=== PATIENT | male | born 1965 | race American Indian/Alaskan Native ===

== ENCOUNTER 2019-01-23 16:11 | Emergency (ER) | payer MEDICAID ==
[2019-01-23 16:27] VITALS: TEMP 98.1
--- NOTE | 2019-01-23 16:51 | C.PDOC ---
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 He was sitting in the car talking to his friend when his wrist started tingling. Over the next 15 minutes, the pain w orsened and stayed constant. About every 10 seconds a new wave of pain inside his wrist bursts, radiating about snf up his forearm and through his fingers. He feels numbness and tingling throughout his hand. He denies fever, chills, sick contacts, recent travel, chest pain, shortness of breath, abdominal pain, nausea, vomiting, constipation, diarrhea, dizziness, headache, trauma. <Candice Chan - Last Filed: 01/23/19 20:48> History Per: Patient Onset/Duration Of Symptoms: Mins Current Symptoms Are (Timing): Worse Quality: Sharp, Burning, Aching, Tightness, "Pain" Pain Scale Rating Of: 10 Additional History Per: Family <Candice Chan - Last Filed: 01/23/19 20:48> <Clovis Lucas DO - Last Filed: 01/24/19 00:16> Chief Complaint (Nursing): Upper Extremity Problem/Injury Past Medical History Reviewed: Historical Data, Nursing Documentation, Vital Signs Vital Signs: Last Vital Signs Temp 98.1 F 01/23/19 16:17 Pulse 64 01/23/19 16:17 Resp 20 01/23/19 16:17 BP 141/97 H 01/23/19 16:17 Pulse Ox 100 01/23/19 16:17 Primary Care Provider: Non [facility] Provider, Surgical History: Pacemaker Family History: States: Unknown Family Hx - Social History Hx Tobacco Use: No Hx Alcohol Use: No Hx Substance Use: Yes (marijuana) - Immunization History Hx Tetanus Toxoid Vaccination: Yes Hx Influenza Vaccination: Yes Hx Pneumococcal Vaccination: Yes <Candice Chan - Last Filed: 01/23/19 20:48> Vital Signs: Last Vital Signs Temp 98.1 F 01/23/19 16:17 Pulse 79 01/23/19 18:14 Resp 16 01/23/19 18:14 BP 123/81 01/23/19 18:14 Pulse Ox 100 01/23/19 19:00 <Clovis Lucas DO - Last Filed: 01/24/19 00:16> Review Of Systems Constitutional: Negative for: Fever, Chills, Weakness, Malaise Eyes: Negative for: Pain, Vision Change ENT: Negative for: Ear Pain, Ear Discharge Cardiovascular: Negative for: Chest Pain, Palpitations, Edema Respiratory: Negative for: Cough, Shortness of Breath, Wheezing Gastrointestinal: Negative for: Nausea, Vomiting, Abdominal Pain, Diarrhea, Constipation Genitourinary: Negative for: Dysuria, Frequency, Incontinence Musculoskeletal: Positive for: Arm Pain, Hand Pain, Other (L wrist pain) Neurological: Positive for: Numbness. Negative for: Weakness, Seizures, Altered Mental Status, Headache, Dizziness Psych: Negative for: Anxiety, Depression <Candice Chan Y - Last Filed: 01/23/19 20:48> Physical Exam - Physical Exam Appears: No Acute Distress, Agitated Skin: Normal Color, Warm, Dry Head: Atraumatic, Normacephalic Eye(s): bilateral: PERRL, EOMI Oral Mucosa: Dry Cardiovascular: Rhythm Regular, No Edema, Other (veins of L wrist engorged) Respiratory: Normal Breath Sounds, No Accessory Muscle Use, No Rales, No Rhonchi, No Wheezing Gastrointestinal/Abdominal: Normal Exam, Soft, No Tenderness Back: No CVA Tenderness Extremity: Capillary Refill, No Deformity, No Swelling, Other (no track nicolas) Extremity: Left: Joint Effusion (minor subdermal bulge with increased tenderness on palpation on lateral anterior aspect of wrist), Normal Color And Temperature (warm compared to surrounding skin) Pulses: Left Radial: Normal (pulsatile), Right Radial: Normal Neurological/Psych: Oriented x3, Normal Speech, Normal Cognition, Normal Cranial Nerves, No Normal Motor (unable to move hand muscles secondary to pain), No Normal Sensation (ulnar distribution numbness, over lateral fifth and medial fourth distribution) <Candice Chan - Last Filed: 01/23/19 20:48> ED Course And Treatment - Laboratory Results Result Diagrams: 01/23/19 17:04 01/23/19 17:04 ECG: Interpreted By Me, Viewed By Me ECG Rhythm: V Paced Interpretation Of ECG: Ventricularly paced rhythm @ 62 O2 Sat by Pulse Oximetry: 100 <Candice Chan Last Filed: 01/23/19 20:48> - Laboratory Results Result Diagrams: 01/23/19 17:04 01/23/19 17:04 Lab Results: PT 12.3 SECONDS (9.7-12.2) H 01/23/19 18:43 INR 1.1 01/23/19 18:43 APTT 37.0 SECONDS (21-34) H 01/23/19 18:43 Troponin I < 0.0120 ng/mL (0.00-0.120) 01/23/19 17:04 Total Bilirubin 0.6 mg/dL (0.2-1.3) 01/23/19 17:04 AST 24 U/L (17-59) 01/23/19 17:04 ALT 21 U/L (21-72) 01/23/19 17:04 Alkaline Phosphatase 79 U/L (38-126) 01/23/19 17:04 Total Protein 7.4 g/dL (6.3-8.3) 01/23/19 17:04 Albumin 4.2 g/dL (3.5-5.0) 01/23/19 17:04 Globulin 3.1 gm/dL (2.2-3.9) 01/23/19 17:04 Albumin/Globulin Ratio 1.3 (1.0-2.1) 01/23/19 17:04 - CT Scan/US CT Other Rad Studies (CT/US): Read By Radiologist, Radiology Report Reviewed CT/US Interpretation: EXAM: CT left Wrist, with IV contrast. CLINICAL HISTORY: R/o abscess left wrist. TECHNIQUE: Axial images were acquired through the left wrist with IV contrast. Reformatted images were reviewed. 0.00 mGy-cm. COMPARISON: None provided. FINDINGS: BONES: No fracture, dislocation, or significant bony arthropathy or destructive bony lesion is identified. There is however widening of scapholunate articulation compared to the lunate triquetral articulation which could indicate ligamentous laxity or disruption of the scapholunate ligament. Correlate clinically. Consider MRI imaging followup. JOINTS: No dislocation. The joint spaces are normal. Carpal alignment is normal. SOFT TISSUES: There is no abnormal soft tissue enhancement to suggest a cellulitis. MISCELLANEOUS: No discrete fluid collection with enhancing margins is identified to suggest the presence of an abscess, mass or other etiology. There is nonstandard patient imaging with oblique axials and no lateral which limits assessment. IMPRESSION: 1. No discrete fluid collection with enhancing margins is identified to suggest the presence of an abscess, mass or other etiology. 2. There is no abnormal soft tissue enhancement to suggest a cellulitis. 3. There is nonstandard patient imaging with oblique axials and no lateral which limits assessment. 4. No fracture, dislocation, or significant bony arthropathy or destructive bony lesion is identified. 5. There is however widening of scapholunate articulation compared to the lunate triquetral articul ation which could indicate ligamentous laxity or disruption of the scapholunate ligament. Correlate clinically. Consider MRI imaging followup. <Quintenlamont Clovis - Last Filed: 01/24/19 00:16> Medical Decision Making Medical Decision Making: - labs - trop - CXR - CT LUE with contrast as UE Doppler currently unavailable - IVP Toradol 30mg 1735 re-eval. Patient is still in pain. states his wrist is more swollen. Patient states he is starting to feel cold and feels like his entire forearm is tight. - IVP Morphine 2mg CXR: No active disease. CT LUE with contrast: 1814 spoke to brother, Jv, who is a PA. He states patient has an ASD which was never surgically repaired. Increased risk for embolic event. 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 - coags CTA UE ordered despite increased radiation exposure as benefit outweigh the risks - IVF started [address] Per vascular eval and CT read, More likely MSK, possible ligament tear as opposed to vascular as pulses palpable, BP even bilaterally, good cap refill distal. CTA cancelled. Due to pacemaker, unable to perform MRI. Patient does not have his pacemaker card on him. His hand tapper does not know what type of pacemaker he has off the top of her head. Dr. Khan: [phone], , Hand contacted, Dr. Gaytan, who also believes this is ligamentous due to pain only on movement and no skin changes. He recommends a wrist splint (with velcro) to minimize movement, and will see him in the office on Tuesday. <Candice Chan - Last Filed: 01/23/19 20:48> Disposition - Disposition Disposition Time: 20:08 <Candice Chan - Last Filed: 01/23/19 20:48> <Clovis Lucas DO - Last Filed: 01/24/19 00:16> - Disposition Referrals: Bharathi Breaux MD [Staff Provider] - Disposition: HOME/ ROUTINE Condition: IMPROVED Additional Instructions: JASMINA VOGEL, thank you for letting us take care of you today. The emergency medical care you received today was directed at your acute symptoms. If you were prescribed any medication, please fill it and take as directed. It may take several days for your symptoms to resolve. Return to the Emergency Department if your symptoms worsen, do not improve, or if you have any other problems. Please contact your doctor or call one of the physicians/clinics you have been referred to that are listed on the Patient Visit Information form that is included in your discharge packet. Bring any paperwork you were given at discharge with you along with any medications you are taking to your follow up visit. Our treatment cannot replace ongoing medical care by a primary care provider outside of the emergency department. Thank you for allowing the [email or web address] team to be part of your care today. Follow up with Dr. Breaux, the hand surgeon, this week for re-evaluation and further management. Prescriptions: oxyCODONE [oxyCODONE Immediate Release Tab] 5 mg PO Q6 PRN #20 tab PRN Reason: Pain, Severe (8-10) Instructions: Wrist Sprain (DC) Forms: [email or web address] ([place]ijani) - Clinical Impression Clinical Impression: Ligamentous laxity of left hand - PA / DIRECTOR OF [facility] / Resident Statement ADIN has reviewed & agrees with the documentation as recorded. / has examined the patient and agrees with the treatment plan. <Candice Chan - Last Filed: 01/23/19 20:48>
[2019-01-23 17:09] LABS: BASO % 0.5 % (0.0-2.0); EOS # 0.2 K/uL (0.0-0.7); EOS % 4.5 % (0.0-4.0); HEMOGLOBIN 13.3 g/dL (12.0-18.0); LYMPH # 1.7 K/uL (1.0-4.3); LYMPH % 33.1 % (20.0-40.0); MEAN CELL VOLUME 88.2 fL (80.0-94.0); MEAN CORPUSCULAR HEMOGLOBIN 29.3 pg (27.0-31.0); MEAN CORPUSCULAR HGB CONC 33.2 g/dL (33.0-37.0); MEAN PLATELET VOLUME 8.1 fL (7.2-11.7); MONO # 0.4 K/uL (0.0-0.8); MONO % 7.1 % (0.0-10.0); NEUT # 2.8 K/uL (1.8-7.0); NEUT % 54.8 % (50.0-75.0); NRBC % 0.1 % (0.0-2.0); RBC 4.53 Mil/uL (4.40-5.90); RED CELL DISTRIBUTION WIDTH 13.8 % (11.5-14.5); WHITE BLOOD COUNT 5.1 K/uL (4.8-10.8)
[2019-01-23 17:22] LABS: ALB/GLOB RATIO 1.3 (1.0-2.1); ALBUMIN 4.2 g/dL (3.5-5.0); ALT/SGPT 21 U/L (21-72); AST/SGOT 24 U/L (17-59); BLOOD UREA NITROGEN 15 mg/dL (9-20); CALCIUM 9.2 mg/dl (8.6-10.4); GFR NON-AFRICAN AMERICAN 49
[2019-01-23] MEDS ORDERED: Iodixanol 320 MG/ML 100 ML BOTTLE IV ONE ×2 (17:38→19:09)
--- NOTE | 2019-01-23 17:40 | RAD ---
Date of service: 01/23/2019 HISTORY: chest pain COMPARISON: No prior. FINDINGS: LUNGS: No active pulmonary disease. PLEURA: No significant pleural effusion identified, no pneumothorax apparent. CARDIOVASCULAR: No atherosclerotic calcification present No radiographic findings to suggest acute or significant cardiovascular disease. Position/ configuration of pacemaker OSSEOUS STRUCTURES: No significant abnormalities. VISUALIZED UPPER ABDOMEN: Normal. OTHER FINDINGS: None. IMPRESSION: No active disease.
[2019-01-23] MEDS ORDERED: Sodium Chloride 0.9% 1,000 ML IV ONE (18:50)
[2019-01-23 18:59] LABS: INR 1.1; PROTHROMBIN TIME 12.3 SECONDS (9.7-12.2)
--- NOTE | 2019-01-23 19:52 | CP.PCM.CON ---
History of Present Illness - History of Present Illness History of Present Illness: Vascular Surgery Consult for Dr. Gamez Reason for consult: LUE pain 53M with PMH of pacemaker, ASD presents to [facility] for complaint of sudden onset L wrist pain. Patient was seen and evaluated in the ED. Patient reports that he was sitting in the car talking to his friend when developed severe wrist pain and numbness/tingling. Subsequently, the pain worsened and remained constant. He reports that pain continued in waves, radiating up his forearm and down through his fingers. He states that he is experiencing intermi ttent numbness and tingling throughout his hand. He denies ever experiencing this type of pain before. Patient denies weakness or other motor/sensory complaints. Patient tried taking Motrin which provided minimal relief. Denies fever/chills, chest pain, shortness of breath, abdominal pain, nausea, vomiting, constipation, diarrhea, dizziness/lightheadedness, headache, trauma. PMH: ASD PSH: pacemaker insertion ALL: NKDA Review of Systems - Review of Systems All systems: reviewed and no additional remarkable complaints except (as per HPI) Past Patient History - Past Social History Smoking Status: cannabis - CARDIAC Hx Pacemaker: Yes - PSYCHIATRIC Hx Substance Use: Yes (marijuana) - SURGICAL HISTORY Hx Surgeries: Yes Other/Comment: pacemaker - ANESTHESIA Hx Anesthesia: Yes Meds Home Medications: Home Medication List Medication Instructions Recorded Confirmed Type oxyCODONE [oxyCODONE Immediate 5 mg PO Q6 PRN #20 tab 01/23/19 Rx Release Tab] Allergies/Adverse Reactions: Allergies Allergy/AdvReac Type Severity Reaction Status Date / Time No Known Allergies Allergy Verified 01/23/19 16:17 Physical Exam - Constitutional Appears: No Acute Distress - Head Exam Head Exam: ATRAUMATIC, NORMOCEPHALIC - Eye Exam Eye Exam: EOMI, Normal appearance Pupil Exam: PERRL - ENT Exam ENT Exam: Mucous Membranes Moist - Respiratory Exam Respiratory Exam: NORMAL BREATHING PATTERN Additional comments: scar from pacemaker insertion on left chest - Cardiovascular Exam Cardiovascular Exam: REGULAR RHYTHM - GI/Abdominal Exam GI & Abdominal Exam: Soft. absent: Tenderness - Extremities Exam Extremities exam: Positive for: normal capillary refill, pedal pulses present. 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 - Back Exam Back exam: absent: CVA tenderness (L), CVA tenderness (R) - Neurological Exam Neurological exam: Alert, CN II-XII Intact, Oriented x3 - Psychiatric Exam Psychiatric exam: Normal Affect, Normal Mood - Skin Skin Exam: Dry, Intact, Warm Results - Vital Signs Recent Vital Signs: Last Vital Signs Temp 98.1 F 01/23/19 16:17 Pulse 79 01/23/19 18:14 Resp 16 01/23/19 18:14 BP 123/81 01/23/19 18:14 Pulse Ox 100 01/23/19 19:45 - Labs Result Diagrams: 01/23/19 17:04 01/23/19 17:04 Labs: Laboratory Results - last 24 hr 01/23/19 01/23/19 01/23/19 17:04 17:04 18:43 WBC 5.1 RBC 4.53 Hgb 13.3 Hct 39.9 MCV 88.2 MCH 29.3 MCHC 33.2 RDW 13.8 Plt Count 166 MPV 8.1 Neut % (Auto) 54.8 Lymph % (Auto) 33.1 [place] % (Auto) 7.1 Eos % (Auto) 4.5 H Baso % (Auto) 0.5 Neut # (Auto) 2.8 Lymph # (Auto) 1.7 [place] # (Auto) 0.4 Eos # (Auto) 0.2 Baso # (Auto) 0.0 PT 12.3 H INR 1.1 APTT 37.0 H Sodium 139 Potassium 4.3 Chloride 101 Carbon Dioxide 29 Anion Gap 13 BUN 15 Creatinine 1.5 Est GFR ( Amer) 59 Est GFR (Non-Af Amer) 49 Random Glucose 116 H Calcium 9.2 Total Bilirubin 0.6 AST 24 ALT 21 Alkaline Phosphatase 79 Troponin I < 0.0120 Total Protein 7.4 Albumin 4.2 Globulin 3.1 Albumin/Globulin Ratio 1.3 Assessment & Plan - Assessment and Plan (Free Text) Assessment: 53M with left wrist pain Plan: -CT LUE: reveals increased joint space in carpal bones concerning for ligamentous injury, no vascular filling defects suggesting embolism or thrombosis (see full report) -No evidence of vascular compromise -Recommends Ortho hand consult -Discussed with Dr. Vera Reece PGY2 - Date & Time Date: 01/23/19 Time: 19:00
[2019-01-23 19:54] VITALS: BP 126/89; PULSE 85; RESP 18
[2019-01-23 20:04] VITALS: O2SAT 100
--- NOTE | 2019-01-24 09:25 | CT ---
Date of service: 01/23/2019 PROCEDURE: CT left wrist HISTORY: L wrist pain / possible abscess COMPARISON: Not available TECHNIQUE: 1.25 mm contiguous axial sections were acquired through the left wrist. Sagittal and coronal images were reformatted from the axial data. Contrast administered: 100 mL Omnipaque 300. This CT exam was performed using 1 or more of the following dose reduction techniques: Automated exposure control, adjustment of the mA and/or kV according to patient size, and/or use of iterative reconstruction technique. FINDINGS: The examination is performed technically limited fashion. The scan was acquired in oblique orientation to the wrist and forearm. There widening of the scapholunate interval. There is a very small ossific density seen within the distal palmar aspect of the scapholunate interval which may represent an old ununited fracture fragment. The widened scapholunate interval indicates possible scapholunate ligamentous disruption. No other fracture is appreciated. There is early scapholunate advanced collapse pattern (SLAC). 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 There is no soft tissue mass or fluid collection identified. There is no evidence of cellulitis. IMPRESSION: No evidence of abscess or cellulitis. Findings consistent with scapholunate ligamentous disruption and scapholunate advanced collapse pattern. Limited examination as described above. The preliminary findings for this examination were reported by [facility] at 7:02 p.m. on 01/23/2019. There is concurrence of this report with the preliminary findings.
== END 2019-01-23 21:08 | disposition home or self-care (01) ==
LOC: C.ER 16:11
DX: M24.242 Disorder of ligament, left hand (principal); Q24.6 Congenital heart block; Z95.0 Presence of cardiac pacemaker
CPT/HCPCS: 71045; 73201; 80053; 84484; 85025; 85610; 85730; 96361; 96374; 96375; 99285; J1885; J2270; J7030; Q9967